=== PATIENT | male | born 1985 | race Two or more races ===

== ENCOUNTER 2023-02-11 10:11 | Emergency (ER) | payer SELFPAY ==
[~2023-02-11] VITALS: Ht 167.6 cm; Wt 82.9 kg
[2023-02-11] MEDS ORDERED: PANTOPRAZOLE 40 MG TAB PO ONE (10:45)
[2023-02-11 11:25] LABS: Potassium 3.5 mmol/L (3.5-5.1)
[2023-02-11 11:29] LABS: Basophils # (auto) 0.1 10 ^3/uL (0-0.2); Basophils % (auto) 1.6 % (0.0-2.0); Eosinophils # (auto) 0.1 10 ^3/uL (0-0.8); Eosinophils % (auto) 2.5 % (0.0-7.0); Hematocrit 40.7 % (41.0-53.0); Hemoglobin 14.4 g/dL (13.5-17.5); Lymphocytes % (auto) 46.8 % (10.0-50.0); Mean Corpuscular Hemoglobin 33.5 pg (28.0-32.0); Mean Corpuscular Hgb Conc. 35.4 g/dL (32.0-36.0); Mean Corpuscular Volume 94.4 fL (80.0-100.0); Monocytes # (auto) 0.2 10 ^3/uL (0-1.3); Monocytes % (auto) 5.3 % (0.0-12.0); Neutrophils # (auto) 1.9 10 ^3/uL (1.6-8.6); Neutrophils % (auto) 43.8 % (37.0-80.0); Nucleated Red Blood Cells % 0.1 %; Red Blood Cells 4.31 10^6/uL (4.5-5.90); Red Cell Distribution Width 12.7 % (11.8-14.3); White Blood Cell 4.2 10^3/uL (4.4-10.8)
[2023-02-11 11:38] LABS: Urine Bacteria NONE SEEN /hpf (None Seen); Urine Blood Negative /uL (Negative); Urine Clarity Clear (Clear); Urine Color Yellow (Yellow); Urine Mucus FEW (None Seen); Urine Protein, UAD 1+ (Negative); Urine Specific Gravity 1.026 (1.001-1.035); Urine WBC <1 /hpf (0 - 3)
[2023-02-11 11:39] LABS: Albumin 4.1 g/dL (3.4-5.0); BUN/Creatinine Ratio 20.3 (10.0-20.0); Bilirubin, Total 0.6 mg/dL (0.2-1.0); Calcium 8.5 mg/dL (8.5-10.1); Total Protein 8.1 g/dL (6.4-8.2)
[2023-02-11] MEDS ORDERED: PANT40TA2 PO (11:48)
[2023-02-11] MEDS ORDERED: ZOFR4T PO (11:48)
[2023-02-11 12:01] VITALS: BP 148/88; PULSE 77; RESP 18; TEMP 97.4; O2SAT 98
== END 2023-02-11 12:02 | disposition home or self-care (01) ==
LOC: ER 10:11
DX: K21.9 Gastro-esophageal reflux disease without esophagitis (principal); K76.0 Fatty (change of) liver, not elsewhere classified; Z79.899 Other long term (current) drug therapy
CPT/HCPCS: 36415; 74176; 80053; 81001; 85025

== ENCOUNTER → 2024-01-18 | Emergency (ER) | payer SELFPAY ==
[~2024-01-18] MED LIST: PANT40TA2 PO; ZOFR4T PO
== END | disposition left against medical advice (07) ==
LOC: ER 20:01
DX: K92.0 Hematemesis (principal); Z53.21 Procedure and treatment not carried out due to patient leaving prior to being seen by health care provider